=== PATIENT | female | born 1940 | race African-American/Black ===

== ENCOUNTER 2019-02-16 23:14 | Emergency (ER) | payer MEDICARE, OTHER ==
[~2019-02-16] VITALS: Ht 177.8 cm; Wt 81.6 kg
[2019-02-16 23:37] VITALS: BP 177/66
--- NOTE | 2019-02-16 23:37 | NUR ---
ER Nurse Note: Pt came home c/o s/p fall at 2100. Pt stated she slipped in the shower and hit RT forehead on the toilet. Skin intact, raised and rounded welt; no bleeding. Pt stated 4/10 headache. Pt a&ox4, steady gait, no signs of distress. Pupils equal and reative to light. Full range of motion on all extremites. Will continue to montior.
--- NOTE | 2019-02-16 23:52 | Emergency Room Report ---
History of Present Illness General Chief Complaint: Multiple Trauma/Fall Source: Patient Present Illness [facility] This is an 79-year-old female with history of hypertension. She presents with chief complaint of head injury. She slipped in the tub and hit the edge of the toilet. She complained of some head injury and headache. No loss of consciousness. No other injury. No neck pain. Pain is 7 out of 10. Worse with palpation. No bleeding. Allergies: Coded Allergies: CODEINE (Verified Allergy, Unknown, 02/16/19) Patient History Past Medical History: see triage record, old chart reviewed, HTN Past Surgical History: none Pertinent Family History: none Social History: Denies: smoking Now: No Immunizations: other Reviewed Nursing Documentation: PMH: Agreed; PSxH: Agreed Nursing Documentation-PMH Past Medical History: No History, Except For Hx Hypertension: Yes Review of Systems Eye: Denies: eye pain, blurred vision ENT: Denies: ear pain, nose congestion, throat swelling Respiratory: Denies: cough, shortness of breath Cardiovascular: Denies: chest pain, palpitations Gastrointestinal: Denies: abdominal pain, diarrhea, nausea, vomiting Musculoskeletal: Denies: back pain, joint pain Skin: Denies: rash Neurological: Denies: headache, numbness Endocrine: Denies: increased thirst, increased urine Hematologic/Lymphatic: Denies: easy bruising All Other Systems: negative except mentioned in HPI Physical Exam Vital Signs Date Time Temp Pulse Resp B/P (MAP) Pulse Ox O2 Delivery O2 Flow Rate FiO2 02/16/19 23:19 97.5 65 15 177/66 (103) 95 Room Air Vitals with high blood pressure Sp02 EP Interpretation: reviewed, normal General Appearance: well appearing, no apparent distress, alert Head: normocephalic, other - Abrasion and small hematoma to right forehead Eyes: bilateral eye PERRL, bilateral eye EOMI ENT: hearing grossly normal, normal pharynx Neck: full range of motion, supple, no meningismus Respiratory: chest non-tender, lungs clear, normal breath sounds Cardiovascular #1: regular rate, rhythm, no murmur Gastrointestinal: normal bowel sounds, non tender, no mass, no organomegaly, no bruit, non-distended Musculoskeletal: back normal, gait/station normal, normal range of motion Psychiatric: mood/affect normal Medical Decision Making Diagnostic Impression: Primary Impression: Head injury, acute Qualified Codes: S09.90XA - Unspecified injury of head, initial encounter Additional Impression: Hypertension Qualified Codes: I10 - Essential (primary) hypertension ER Course Patient presents with minor head injury from a fall. No syncope. No internal bleeding. No skull fracture. Not on anticoagulation. Will discharge home. CT/MRI/US Diagnostic Results CT/MRI/US Diagnostic Results : Imaging Test Ordered: CT Head Impression Neg per radiologist Last Vital Signs Date Time Temp Pulse Resp B/P (MAP) Pulse Ox O2 Delivery O2 Flow Rate FiO2 02/16/19 23:37 65 15 Room Air 02/16/19 23:37 97.5 177/66 95 Status: improved Disposition: HOME, SELF-CARE Condition: Stable Referrals: NON PHYSICIAN (PCP) Additional Instructions: Follow up your doctor in 7 days. Return if symptoms worsen. Kevin Reid MD Feb 16, 2019 23:52
--- NOTE | 2019-02-17 00:17 | Diagnostic Imaging Report ---
EXAM: CT Head Without Intravenous Contrast CLINICAL HISTORY: TRAUMA TECHNIQUE: Axial computed tomography images of the head/brain without intravenous contrast. CTDI is 70 mGy and DLP is 1351 mGy-cm. One or more of the following dose reduction techniques were used: automated exposure control, adjustment of the mA and/or kV according to patient size, use of iterative reconstruction technique. COMPARISON: No relevant prior studies available. FINDINGS: Brain: Unremarkable. No hemorrhage. No significant white matter disease. No edema. Ventricles: Unremarkable. No ventriculomegaly. Bones/joints: Unremarkable. No acute fracture. Soft tissues: Small right frontal scalp hematoma. Vasculature: Cerebrovascular atherosclerosis. Sinuses: Unremarkable as visualized. No acute sinusitis. Mastoid air cells: Unremarkable as visualized. No mastoid effusion. IMPRESSION: 1. Unremarkable for age unenhanced CT head without acute intracranial abnormality. 2. Small right frontal scalp hematoma.
[2019-02-17 00:35] VITALS: BP 177/66
--- NOTE | 2019-02-17 00:35 | NUR ---
ER Nurse Note: Pt seen, treated, medically cleared for discharge by ERMD. Discharge instuctions given with repeat verbalization by pt. Emphasized to follow up with primay care provider. All orders completed per ERMD orders. Pt a&ox4, VSS, no signs of distress. ID band removed. Ice pack provided. All questions answered per pt's questions. Pt left with all belongings, left with own transportation.
== END 2019-02-17 00:35 | disposition home or self-care (01) ==
LOC: EMR 23:39
DX: S09.90XA Unspecified injury of head, initial encounter (principal); I10 Essential (primary) hypertension; W01.0XXA Fall on same level from slipping, tripping and stumbling without subsequent striking against object, initial encounter; Y92.9 Unspecified place or not applicable; Z88.6 Allergy status to analgesic agent; S00.81XA Abrasion of other part of head, initial encounter
CPT/HCPCS: 70450; 99284